=== PATIENT | female | born 1955 | race Caucasian/White ===

== ENCOUNTER 2019-04-05 10:47 | Outpatient (CLI) | payer MEDICARE, BC ==
--- NOTE | 2019-04-05 12:55 | RAD ---
RIGHT HAND 3 VIEWS: DATE: 04/05/2019. FINDINGS: No acute fracture was seen. The Metacarpals and carpals all appeared intact. Severe degenerative ch anges are seen in the 1st carpometacarpal joint. IMPRESSION: Chronic changes, but no acute findings. POS: HOME
--- NOTE | 2019-04-05 12:57 | RAD ---
RIGHT WRIST 3 VIEWS: DATE: 04/05/2019. FINDINGS: Severe degenerative changes are seen between the trapezium and 1st metacarpal base. The remainder of the carpals were unremarkable. There were no signs of acute fracture or bony destructive lesions. IMPRESSION: Arthritic changes as noted. POS: HOME
== END 2019-04-05 10:48 | disposition home or self-care (01) ==
LOC: BURRAD 10:47
PROVIDERS: ATTEND Nurse Practitioner Family
DX: M25.531 Pain in right wrist (principal); M79.641 Pain in right hand; M19.031 Primary osteoarthritis, right wrist

== ENCOUNTER 2020-07-28 13:33 | Emergency (ER) | payer MEDICARE, BC ==
[~2020-07-28 13:33] MED LIST: Iopamidol 370 76% 100 ML VIAL ONE
[2020-07-28 14:16] LABS: INR-International Normal Ratio 0.9; Prothrombin Time 12.4 sec (12.0-14.7)
[2020-07-28 14:26] LABS: ALT (SGPT) 17 U/L (8-55); AST (SGOT) 36 U/L (5-34); Albumin 4.3 g/dL (3.4-4.8); Alkaline Phosphatase 100 U/L (40-110); Anion Gap 18 mmol/L (10-20); BUN (Urea Nitrogen) 5 mg/dL (9.8-20.1); Bilirubin, Total 1.3 mg/dL (0.2-1.2); Calc. Creatinine Clearance 0 mL/min (70-130); Carbon Dioxide 26 mmol/L (23-31); Chloride 98 mmol/L (98-107); Globulin 3.2 g/dL (2.4-3.5); Glucose 109 mg/dL (80-115); Potassium 3.8 mmol/L (3.5-5.1); Protein, Total 7.5 g/dL (6.0-8.3); Sodium 138 mmol/L (136-145)
[2020-07-28 14:28] LABS: Hemoglobin 15.3 g/dL (12.0-16.0); Mean Corpuscular HGB CONC 33.2 g/dL (32.0-36.0); Platelet Count 260 thou/uL (130-400); RBC Distribution Width 11.5 % (11.5-14.5); Red Blood Cell (RBC) Count 4.15 mill/uL (4.20-5.40); White Blood Cell (WBC) Count 7.9 thou/uL (4.8-10.8)
[2020-07-28 14:56] LABS: #Basophils 0.1 thou/uL (0.0-0.2); #Monocytes 0.6 thou/uL (0.11-0.59); #Neutrophils 5.1 thou/uL (1.40-6.50); %Basophils 1.2 % (0.0-1.0); %Eosinophils 0.4 % (0.0-10.0); %Lymphocytes 25.8 % (21.0-51.0); %Monocytes 7.7 % (0.0-10.0); %Neutrophils 64.8 % (42.0-75.0); Anisocytosis SLIGHT = 6-15 cells (100X) (0-5/hpf); MDiff Complete? YES; Macrocytosis SLIGHT = 6-15 cells (100X) (0-5/hpf); Platelet Morphology Comment Appears Adequate; Polychromasia SLIGHT = 2-3 cells (100X) (0-2/hpf)
--- NOTE | 2020-07-28 15:34 | CT ---
CT OF THE BRAIN WITHOUT CONTRAST: Date: 07/28/2020 The ventricles are normal in size with no shift. No intracranial bleeding or extra-axial hematoma see n. No sign of mass, edema, or acute stroke. The skull is normal in appearance. The visible paranasal sinuses and mastoid air cells are clear. IMPRESSION: No acute intracranial findings. POS: HOME
--- NOTE | 2020-07-28 15:37 | CT ---
CT OF THE FACIAL BONES: 07/28/20 No facial fractures were seen. The zygomatic arches, maxilla, nasal bones, and orbital rims all appea red intact. The paranasal sinuses are clear. A small 5 mm rounded soft tissue density in the floor of the left maxillary sinus could be a small polyp or even a tiny retention cyst. The nasal bones appea r intact, though there is slight deviation of the septum towards the left. This could easily be old. The retro-orbital areas appear normal. On the sagittal review, one notes a prominent anterolisthesis of C3 on C4. On these images, it appear s to be due to facet arthritis. See CT of the cervical spine report to follow-up. IMPRESSION: No acute bony injury seen in the facial region. POS: HOME
--- NOTE | 2020-07-28 15:40 | CT ---
CT CERVICAL SPINE: Date: 07/28/[address] of the cervical spine was done following trauma. No fracture was seen at any cervical level. The C1 to dens distance is not widened and the soft tissu es are normal in thickness. There is a 3-4 mm anterior subluxation of C3 on C4 that appears to be on the basis of severe facet arthritis. This is most likely longstanding. There is disc space narrowing at C3-C4, C4-C5, C5-C6, and C6-C7. There is loss of the normal cervical lordosis which could be due t o muscle spasm. Findings by level follow: C1-C2: No acute findings. C2-C3: No acute findings. C3-C4: As stated above, 3-4 mm anterior subluxation of C3 on C4 due to facet arthritis. Facet arthri tis is particularly bad on the right side. There is mild right foraminal narrowing and probably some on the left as well. C4-C5: Significant facet arthritis on the right. Mild right foraminal narrowing. C5-C6: No acute findings. Minimal foraminal narrowing bilaterally. C6-C7: No acute findings. Minor left foraminal narrowing. C7-T1: No acute findings. T1-T2: No acute findings. The lung apices show no pneumothorax. A few blebs or cystic changes are seen in the right lung apex. IMPRESSION: 1. No fracture evident. 2. 3-4 mm anterior subluxation of C3 on C4 that appears to be due to severe facet arthritis. One mathew ht electively look at flexion and extension views to be sure there is no excessive motion at this lev el. 3. Degenerative changes elsewhere as noted. 4. Straightening of the cervical spine, sometimes due to muscle spasm. Report of all scans called to Dr. Beckham at 1418 hours on 07/28/2020. CODE CR. POS: HOME
[2020-07-28 16:17] LABS: Bilirubin Negative (Negative); Blood, Urine Trace (Negative); Clarity Clear (Clear); Glucose, Urine (Dipstick) Negative (Negative); Ketone, Urine Negative (Negative); Leukocyte Negative (Negative); Nitrite Negative (Negative); Protein, Urine (Dipstick) Negative (Neg-Trace); Specific Gravity, Urine 1.015 (1.005-1.030); Urobilinogen 0.2 mg/dL (Less than 2)
[2020-07-28 16:22] LABS: RBC/HPF 0-3 HPF (0-3)
[2020-07-28 16:23] LABS: Bacteria/HPF Rare-Few HPF (None Seen); Squamous Epithelial 0-3 HPF (0-3); WBC/HPF 0-3 HPF (0-3)
--- NOTE | 2020-07-28 16:36 | RAD ---
PORTABLE CHEST: 07/28/20 An AP portable film at 1512 is submitted with no prior films available for comparison. The lungs are hyperexpanded with mild flattening of the diaphragm. There is no major lobar infiltrate or large effusion. Some minor prominence of basilar markings, particularly in the left base, seems m ore likely scarring than acute. The remainder of the lungs is clear. The mediastinum is unremarkable. The heart size is normal. IMPRESSION: Hyperexpansion of the lungs, but no acute findings otherwise. Specifically, no traumatic changes were appreciated in the chest. POS: HOME
--- NOTE | 2020-07-28 19:21 | CT ---
CT CHEST, ABDOMEN AND PELVIS WITH CONTRAST: 07/28/[address] of the chest, abdomen and pelvis was done following trauma. Axial slices were acquired foll owed by coronal and sagittal reconstructions. CT OF THE THORAX: The mediastinum showed no sign of aortic injury, hematoma, mass, or adenopathy. The ascending aorta i s chronically enlarged, measuring 3.8 cm in diameter. There were no filling defects in the proximal p ulmonary arteries. Emphysematous changes are present in the lungs, including numerous cystic areas th roughout. No acute infiltrate, effusion, or pneumothorax was seen. The thoracic spine, ribs and stein um all appeared intact. CT ABDOMEN AND PELVIS: The liver, spleen, pancreas, gallbladder, adrenal glands, kidneys, and abdominal aorta showed no sign of laceration, hematoma or other traumatic change. Calcification is seen in the aorta, particularly distally. At least two small cysts were noted in the right kidney. The bowel shows no dilation or wal l thickening. No inflammatory changes are seen around bowel. No free air or free fluid was present. CT of the pelvis showed no pelvic masses, fluid collections, or signs of hematoma. The bony pelvis appears intact with no signs of fracture in the pelvis itself or either hip. Lumbar s coliosis convexed right is present with degenerative changes very prominent at the L3-L4 and L4-L5 le vels. Degenerated discs are particularly prominent at this level. IMPRESSION: 1. Emphysematous changes in the chest. Chronically enlarged ascending aorta (3.8 cm). No acute t raumatic findings. 2. No acute traumatic findings in the abdomen or pelvis. 3. Scoliosis with advanced degenerative change of the lumbar spine. Findings called to Dr. Beckham at 1700 on 07/28/20. POS: HOME
== END 2020-07-28 17:30 | disposition home or self-care (01) ==
LOC: BURERS 13:33
DX: S06.9X9A Unspecified intracranial injury with loss of consciousness of unspecified duration, initial encounter (principal); S05.11XA Contusion of eyeball and orbital tissues, right eye, initial encounter; F17.290 Nicotine dependence, other tobacco product, uncomplicated; W10.9XXA Fall (on) (from) unspecified stairs and steps, initial encounter
CPT/HCPCS: 70450; 70486; 71045; 71260; 72125; 74177; 80053; 81003; 81015; 85025; 85610; 93005; Q9967

== ENCOUNTER 2021-05-26 15:31 | Emergency (ER) | payer MEDICARE, BC ==
[2021-05-26 16:14] LABS: Bilirubin Negative (Negative); Blood, Urine Negative (Negative); Clarity Clear (Clear); Glucose, Urine (Dipstick) Negative (Negative); Ketone, Urine 15 mg/dL (Negative); Leukocyte Trace (Negative); Nitrite Negative (Negative); Protein, Urine (Dipstick) Negative (Neg-Trace); Urobilinogen 0.2 mg/dL (Less than 2); pH, Urine 6.5 (5.0-9.0)
[2021-05-26 16:15] LABS: ALT (SGPT) 14 U/L (8-55); AST (SGOT) 23 U/L (5-34); Albumin 4.4 g/dL (3.4-4.8); Alkaline Phosphatase 79 U/L (40-110); Anion Gap 17 mmol/L (10-20); BUN (Urea Nitrogen) 5 mg/dL (9.8-20.1); Bilirubin, Total 1.1 mg/dL (0.2-1.2); Calc. Creatinine Clearance 0 mL/min (70-130); Calcium 9.8 mg/dL (7.8-10.44); Carbon Dioxide 25 mmol/L (23-31); Chloride 90 mmol/L (98-107); Globulin 3.4 g/dL (2.4-3.5); Glucose 75 mg/dL (80-115); Lipase 11 U/L (8-78); Potassium 3.5 mmol/L (3.5-5.1); Protein, Total 7.8 g/dL (5.8-8.1); Sodium 128 mmol/L (136-145)
[2021-05-26 16:17] LABS: Specific Gravity, Urine 1.003 (1.002-1.036)
[2021-05-26 16:23] LABS: #Basophils 0.1 thou/uL (0.0-0.2); #Eosinphils 0.2 thou/uL (0.0-0.7); #Lymphocytes 2.6 thou/uL (1.20-3.40); %Basophils 1.3 % (0.0-1.0); %Eosinophils 1.7 % (0.0-10.0); %Lymphocytes 28.8 % (21.0-51.0); %Monocytes 11.4 % (0.0-10.0); %Neutrophils 56.9 % (42.0-75.0); Hemoglobin 14.7 g/dL (12.0-16.0); Mean Corpuscular HGB CONC 35.3 g/dL (32.0-36.0); Mean Corpuscular Hemoglobin 37.9 pg (27.0-31.0); Mean Platelet Volume 5.9 fL (7.4-10.4); Platelet Count 279 thou/uL (130-400); RBC Distribution Width 10.8 % (11.5-14.5); Red Blood Cell (RBC) Count 3.88 mill/uL (4.20-5.40); White Blood Cell (WBC) Count 8.9 thou/uL (4.8-10.8)
[2021-05-26 16:34] LABS: Platelet Morphology Comment Appears Adequate; RBC Morphology Normal
[2021-05-26 16:40] LABS: Bacteria/HPF Rare-Few HPF (None Seen); RBC/HPF None Seen HPF (0-3); Squamous Epithelial 0-3 HPF (0-3); Transitional Epithelial 0-3 HPF (None Seen); WBC/HPF 0-3 HPF (0-3)
== END 2021-05-26 17:04 | disposition home or self-care (01) ==
LOC: BURERS 15:31
DX: R33.9 Retention of urine, unspecified (principal); R10.30 Lower abdominal pain, unspecified; F17.210 Nicotine dependence, cigarettes, uncomplicated
CPT/HCPCS: 74177; 80053; 81003; 81015; 83605; 83690; 84484; 85025; 87086; 93005; 94760; Q9967

== ENCOUNTER 2022-08-31 00:13 | Emergency (ER) | payer OTHER, MEDICARE, BC ==
[2022-08-31] MEDS ORDERED: Lidocaine 1% PF 5 ML VIAL ONE (00:41)
[2022-08-31 01:19] LABS: Hemoglobin 17.2 g/dL (12.0-16.0); Mean Corpuscular HGB CONC 33.9 g/dL (32.0-36.0); Mean Corpuscular Hemoglobin 37.3 pg (27.0-31.0); Mean Platelet Volume 8.4 fL (7.4-10.4); Platelet Count 205 10x3/uL (130-400); RBC Distribution Width 12.7 % (11.5-14.5); Red Blood Cell (RBC) Count 4.63 mill/uL (4.20-5.40); White Blood Cell (WBC) Count 7.1 10x3/uL (4.8-10.8)
[2022-08-31 01:20] LABS: #Basophils 0.1 thou/uL (0.0-0.2); #Eosinphils 0.2 thou/uL (0.0-0.7); #Monocytes 0.8 thou/uL (0.11-0.59); #Neutrophils 5.1 thou/uL (1.40-6.50); %Basophils 1.9 % (0.0-1.0); %Eosinophils 2.9 % (0.0-10.0); %Lymphocytes 13.4 % (21.0-51.0); %Monocytes 10.7 % (0.0-10.0); %Neutrophils 71.2 % (42.0-75.0)
[2022-08-31 02:00] LABS: ALT (SGPT) 11 U/L (8-55); AST (SGOT) 19 U/L (5-34); Albumin 2.7 g/dL (3.4-4.8); Alkaline Phosphatase 121 U/L (40-110); Anion Gap 15 mmol/L (10-20); BUN (Urea Nitrogen) Less than 4 mg/dL (9.8-20.1); Bilirubin, Total 0.5 mg/dL (0.2-1.2); Calc. Creatinine Clearance 0 mL/min (70-130); Calcium 7.6 mg/dL (7.8-10.44); Carbon Dioxide 24 mmol/L (23-31); Chloride 105 mmol/L (98-107); Estimated GFR 99; Globulin 2.4 g/dL (2.4-3.5); Glucose 107 mg/dL (80-115); Potassium 3.3 mmol/L (3.5-5.1); Protein, Total 5.1 g/dL (5.8-8.1); Sodium 141 mmol/L (136-145)
== END 2022-08-31 02:25 | disposition home or self-care (01) ==
LOC: BURERS 00:13
DX: S01.01XA Laceration without foreign body of scalp, initial encounter (principal); S01.112A Laceration without foreign body of left eyelid and periocular area, initial encounter; I10 Essential (primary) hypertension; F17.200 Nicotine dependence, unspecified, uncomplicated; Z79.899 Other long term (current) drug therapy; W18.39XA Other fall on same level, initial encounter
CPT/HCPCS: 12011; 36415; 70450; 80053; 85025